=== PATIENT | female | born 1940 | race Two or more races ===

== ENCOUNTER 2024-05-26 07:16 | Outpatient (CLI) | payer OTHER | END 2024-05-26 07:25 | disposition home or self-care (01) | LOC: TOM 07:16 | PROVIDERS: ATTEND Colon & Rectal Surgery | DX: Z86.11 Personal history of tuberculosis (principal); Z12.11 Encounter for screening for malignant neoplasm of colon; Z80.0 Family history of malignant neoplasm of digestive organs ==